=== PATIENT | female | born 1985 | race African-American/Black ===

== ENCOUNTER 2023-12-16 05:40 | Observation (INO) | payer OTHER ==
[2023-12-16] MEDS ORDERED: ONDANSETRON 4 MG/2 ML VIAL ONE (06:25)
[2023-12-16] MEDS ORDERED: FAMOTIDINE 20 MG/50 ML IVPB 20 MG/50 ML MG IVPB ONE (06:25)
[2023-12-16] MEDS: ONDANSETRON 4 MG/2 ML VIAL IVPUSH ONE (07:45)
[2023-12-16] MEDS: SODIUM CHLORIDE 0.9% 500 ML INFUS.BAG IV ONE (07:50)
[2023-12-16] MEDS: FAMOTIDINE 20 MG/50 ML IVPB 20 MG/50 ML MG IVPB ONE (07:51)
[2023-12-16 08:17] LABS: BASO % 0.2 % (0-2.0); HEMATOCRIT 38.8 % (32.4-45.2); HEMOGLOBIN 12.6 GM/dL (10.7-15.3); LYMPH % 7.7 % (8-40); MCH 26.2 pg (25.7-33.7); MCHC 32.5 g/dl (32.0-36.0); MEAN CELL VOLUME 80.5 fl (80-96); MONO % 3.3 % (3.8-10.2); NEUT % 88.8 % (42.8-82.8); PLATELET COUNT 448 10^3/uL (134-434); RBC 4.82 M/mm3 (3.60-5.2); RDW 18.1 % (11.6-15.6); WHITE BLOOD COUNT 18.7 K/mm3 (4.0-10.0)
[2023-12-16 08:37] LABS: POTASSIUM 4.2 mmol/L (3.5-5.1)
[2023-12-16 08:39] LABS: CALCIUM 10.2 mg/dL (8.5-10.1)
[2023-12-16 08:40] LABS: ALBUMIN 3.7 g/dl (3.4-5.0); BLOOD UREA NITROGEN 14.3 mg/dL (7-18)
[2023-12-16 08:43] LABS: CREATININE 0.9 mg/dL (0.55-1.3)
[2023-12-16 08:44] LABS: BILIRUBIN,TOTAL 0.3 mg/dL (0.2-1)
[2023-12-16 08:45] LABS: TOT PROT 8.1 g/dl (6.4-8.2)
[2023-12-16] MEDS ORDERED: ACETAMINOPHEN INJECTION 100 ML IVPB ONE (10:24)
[2023-12-16] MEDS ORDERED: KETOROLAC TROMETHAMINE 15 MG/ML VIAL ONE (10:24)
[2023-12-16] MEDS: KETOROLAC TROMETHAMINE 15 MG/ML VIAL IVPUSH ONE (10:25)
[2023-12-16] MEDS: ACETAMINOPHEN 1000 MG/100 ML BAG IVPB ONE (10:33)
[2023-12-16] MEDS: SODIUM CHLORIDE 1,000 ML IV STA (10:33)
[2023-12-16] MEDS: DICYCLOMINE HCL 20 MG/2 ML AMPUL IM ONE (13:24)
[2023-12-16 13:31] LABS: URINE APPEARANCE CLEAR; URINE BILIRUBIN NEGATIVE (NEGATIVE); URINE COLOR YELLOW; URINE GLUCOSE (UA) NEGATIVE (NEGATIVE); URINE KETONE 1+ (NEGATIVE); URINE LEUK ESTERASE NEGATIVE (NEGATIVE); URINE NITRITE NEGATIVE (NEGATIVE); URINE PROTEIN TRACE (NEGATIVE); URINE UROBILINOGEN 0.2 mg/dL (0.2-1.0)
[2023-12-16] MEDS ORDERED: ALBUTEROL SO4 HFA INHALER IH PRN (14:28)
[2023-12-16] MEDS ORDERED: ALBUTEROL SO4 2.5/IPRATROPIUM 0.5 INH SOL 3 ML VIAL.NEB. NEB PRN (14:28)
[2023-12-16] MEDS: LACTATED RINGERS SOLUTION 1000 ML INFUS.BAG IV ONE (14:38)
[2023-12-16] MEDS ORDERED: amLODIPine BESYLATE 10 MG TABLET (FP) ONE (15:09)
[2023-12-16] MEDS ORDERED: HYDROCHLOROTHIAZIDE 25 MG TABLET (FP) ONE (15:09)
[2023-12-16] MEDS: amLODIPine BESYLATE 10 MG TABLET (FP) PO ONE (15:12)
[2023-12-16] MEDS: HYDROCHLOROTHIAZIDE 25 MG TABLET (FP) PO ONE (15:12)
[2023-12-16] MEDS ORDERED: ACETAMINOPHEN 1000 MG/100 ML BAG IVPB PRN (16:22)
[2023-12-16] MEDS ORDERED: morphine CARPU-JECT 4 MG/1 ML DISP.SYRIN IVPUSH ONE (16:22)
[2023-12-16] MEDS ORDERED: morphine SULFATE 4 MG/ML VIAL ONE (16:28)
[2023-12-16] MEDS ORDERED: MORPHINE SULFATE 2 MG/ML SYRINGE IVPUSH PRN (16:29)
[2023-12-16] MEDS: morphine SULFATE 4 MG/ML VIAL IVPUSH ONE (16:36)
[2023-12-16] MEDS ORDERED: LABETALOL HCL 20 MG/4 ML VIAL IVPUSH ONE (17:19)
[2023-12-16] MEDS ORDERED: LABETALOL HCL 5 MG/1 ML (100MG/20 ML VIAL) ONE (17:19)
[2023-12-16] MEDS: LABETALOL HCL 5 MG/1 ML (100MG/20 ML VIAL) IVPUSH ONE (17:24)
[2023-12-16 18:41] VITALS: BMI 43.2
[2023-12-16] MEDS: DEXTROSE 5%-LACTATED RINGERS 1,000 ML IV SCH (18:58)
[2023-12-16] MEDS: FLUTICASONE/SALMETEROL (WIXELA) 100 MCG/50 MCG DISKUS IH SCH (21:35)
[2023-12-16] MEDS: MONTELUKAST NA 10 MG TABLET PO SCH (21:36)
[2023-12-16] MEDS: ONDANSETRON 4 MG/2 ML VIAL IVPUSH PRN (21:51)
[2023-12-16] MEDS: ENOXAPARIN NA (PORCINE) 40 MG/0.4 ML DISP.SYRIN SQ SCH (21:52)
[2023-12-17] MEDS: HYDROCHLOROTHIAZIDE 25 MG TABLET (FP) PO SCH (09:08)
[2023-12-17] MEDS: amLODIPine BESYLATE 10 MG TABLET (FP) PO SCH (09:08)
[2023-12-17 10:26] LABS: HEMATOCRIT 34.5 % (32.4-45.2); HEMOGLOBIN 11.2 GM/dL (10.7-15.3); MCHC 32.6 g/dl (32.0-36.0); MEAN CELL VOLUME 79.8 fl (80-96); MEAN PLT VOLUME 7.8 fl (7.5-11.1); PLATELET COUNT 373 10^3/uL (134-434); RBC 4.32 M/mm3 (3.60-5.2); RDW 18.1 % (11.6-15.6); WHITE BLOOD COUNT 13.3 K/mm3 (4.0-10.0)
[2023-12-17 10:44] LABS: POTASSIUM 3.2 mmol/L (3.5-5.1)
[2023-12-17 10:53] LABS: BLOOD UREA NITROGEN 7.3 mg/dL (7-18); CALCIUM 8.8 mg/dL (8.5-10.1); MAGNESIUM 1.5 mg/dL (1.8-2.4)
[2023-12-17 10:54] LABS: ALBUMIN 3.1 g/dl (3.4-5.0)
[2023-12-17 10:57] LABS: CREATININE 0.9 mg/dL (0.55-1.3); PHOSPHOROUS 3.1 mg/dL (2.5-4.9)
[2023-12-17 10:58] LABS: BILIRUBIN,TOTAL 0.3 mg/dL (0.2-1); TOT PROT 6.6 g/dl (6.4-8.2)
[2023-12-17] MEDS: MAGNESIUM 2GM/50ML STERILE WATER IVPB IVPB ONE (18:21)
[2023-12-18 10:12] LABS: INR 1.26 (0.83-1.09); PROTHROMBIN TIME (PATIENT) 14.4 SEC (9.7-13.0)
[2023-12-18 10:14] LABS: BASO % 0.4 % (0-2.0); EOS % 0.7 % (0-4.5); HEMATOCRIT 36.2 % (32.4-45.2); HEMOGLOBIN 11.9 GM/dL (10.7-15.3); MCH 26.2 pg (25.7-33.7); MCHC 32.9 g/dl (32.0-36.0); MEAN CELL VOLUME 79.7 fl (80-96); MEAN PLT VOLUME 7.7 fl (7.5-11.1); MONO % 5.1 % (3.8-10.2); NEUT % 79.8 % (42.8-82.8); PLATELET COUNT 406 10^3/uL (134-434); RBC 4.54 M/mm3 (3.60-5.2); RDW 18.2 % (11.6-15.6); WHITE BLOOD COUNT 11.3 K/mm3 (4.0-10.0)
[2023-12-18 10:21] LABS: POTASSIUM 3.1 mmol/L (3.5-5.1)
[2023-12-18 10:24] LABS: CALCIUM 9.1 mg/dL (8.5-10.1)
[2023-12-18 10:25] LABS: ALBUMIN 3.3 g/dl (3.4-5.0)
[2023-12-18 10:27] LABS: BLOOD UREA NITROGEN 5.4 mg/dL (7-18); CREATININE 0.8 mg/dL (0.55-1.3)
[2023-12-18 10:29] LABS: BILIRUBIN,TOTAL 0.3 mg/dL (0.2-1); TOT PROT 6.9 g/dl (6.4-8.2)
[2023-12-18] MEDS: methylPREDNISolone NA SUCC 125 MG/2 ML VIAL IVPUSH ONE (12:18)
[2023-12-18] MEDS: POTASSIUM CHLORIDE ORAL LIQUID 20 MEQ/15 ML PO ONE ×2 (15:40→22:14)
[2023-12-18] MEDS: morphine SULFATE 4 MG/ML VIAL IVPUSH ONE (15:59)
[2023-12-18] MEDS: BUDESONIDE/FORMETEROL FUMARATE 160/4.5 mcg INHALER IH SCH (22:33)
[2023-12-19 09:57] LABS: HEMOGLOBIN 11.8 GM/dL (10.7-15.3); MCH 26.2 pg (25.7-33.7); MCHC 32.6 g/dl (32.0-36.0); MEAN CELL VOLUME 80.2 fl (80-96); MEAN PLT VOLUME 7.9 fl (7.5-11.1); PLATELET COUNT 407 10^3/uL (134-434); RBC 4.49 M/mm3 (3.60-5.2); RDW 17.8 % (11.6-15.6); WHITE BLOOD COUNT 22.1 K/mm3 (4.0-10.0)
[2023-12-19 10:18] LABS: POTASSIUM 3.7 mmol/L (3.5-5.1)
[2023-12-19 10:20] LABS: ALBUMIN 3.5 g/dl (3.4-5.0); CALCIUM 9.5 mg/dL (8.5-10.1)
[2023-12-19 10:22] LABS: MAGNESIUM 1.9 mg/dL (1.8-2.4)
[2023-12-19 10:24] LABS: CREATININE 0.8 mg/dL (0.55-1.3); PHOSPHOROUS 2.8 mg/dL (2.5-4.9)
[2023-12-19 10:25] LABS: BILIRUBIN,TOTAL 0.3 mg/dL (0.2-1); TOT PROT 7.4 g/dl (6.4-8.2)
[2023-12-19] MEDS: NAPROXEN 250 MG TABLET PO SCH (15:55)
[2023-12-19] MEDS: CELECOXIB 200 MG CAPSULE PO SCH (17:28)
[2023-12-19] MEDS: IRON SUCROSE INJECTION 200 MG in SODIUM CHLORIDE 100 ML IVPB ONE (17:28)
[2023-12-19] MEDS: PANTOPRAZOLE 40 MG TABLET PO SCH (22:46)
[2023-12-20] MEDS: oxyCODONE HCL 5 MG TABLET PO PRN (01:11)
[2023-12-20 03:01] VITALS: RESP 18; TEMP 99
[2023-12-20 09:53] VITALS: BP 127/82; PULSE 98
== END 2023-12-20 11:15 | disposition home or self-care (01) ==
LOC: JER 05:40 → JERBED 14:09 → J6S 18:10
PROVIDERS: ADMIT Internal Medicine; ATTEND Internal Medicine
PROC: 0DB78ZX Excision of Stomach, Pylorus, Via Natural or Artificial Opening Endoscopic, Diagnostic (ICD-10-PCS; principal; 2023-12-16)
PROC: 3E033NZ Introduction of Analgesics, Hypnotics, Sedatives into Peripheral Vein, Percutaneous Approach (ICD-10-PCS; 2023-12-16)
PROC: 3E033GC Introduction of Other Therapeutic Substance into Peripheral Vein, Percutaneous Approach (ICD-10-PCS; 2023-12-16)
PROC: 3E0337Z Introduction of Electrolytic and Water Balance Substance into Peripheral Vein, Percutaneous Approach (ICD-10-PCS; 2023-12-16)
PROC: 3E023GC Introduction of Other Therapeutic Substance into Muscle, Percutaneous Approach (ICD-10-PCS; 2023-12-16)
PROC: 3E0333Z Introduction of Anti-inflammatory into Peripheral Vein, Percutaneous Approach (ICD-10-PCS; 2023-12-16)
DX: K29.50 Unspecified chronic gastritis without bleeding (principal); K44.9 Diaphragmatic hernia without obstruction or gangrene; N80.9 Endometriosis, unspecified; I10 Essential (primary) hypertension; J45.909 Unspecified asthma, uncomplicated; K80.20 Calculus of gallbladder without cholecystitis without obstruction; K64.9 Unspecified hemorrhoids; E66.01 Morbid (severe) obesity due to excess calories; G47.33 Obstructive sleep apnea (adult) (pediatric); D25.9 Leiomyoma of uterus, unspecified; N81.4 Uterovaginal prolapse, unspecified; Z88.0 Allergy status to penicillin
CPT/HCPCS: 36415; 74177-TC; 76705-TC; 76830-TC; 80048; 80053; 81003; 83540; 83550; 83690; 83735; 84100; 84703; 85025; 85027; 85610; 86140; 86850; 86900; 86901; 87045; 87046; 87086; 87205; 87209; 87324; 87449; 87493; 88305-TC; 88342-TC; 93005; 93010; 96361; 96365; 96366; 96367; 96372; 96375; 96376; 99285-25; G0378; J0131; J1756; Q9967

== ENCOUNTER 2024-01-13 09:30 | Observation (INO) | payer OTHER ==
[2024-01-13] MEDS: SODIUM CHLORIDE 0.9% 500 ML INFUS.BAG IV ONE (10:45)
[2024-01-13] MEDS ORDERED: PANTOPRAZOLE 40 MG TABLET PO ONE (10:48)
[2024-01-13] MEDS ORDERED: ALBUTEROL SO4 2.5/IPRATROPIUM 0.5 INH SOL 3 ML VIAL.NEB. NEB ONE (10:48)
[2024-01-13] MEDS ORDERED: ONDANSETRON 4 MG/2 ML VIAL ONE (10:49)
[2024-01-13] MEDS ORDERED: SUCRALFATE 1 GM TABLET (FP) ONE (10:49)
[2024-01-13] MEDS ORDERED: methylPREDNISolone NA SUCC 125 MG/2 ML VIAL ONE (10:49)
[2024-01-13] MEDS ORDERED: MAG HYDROX/AL HYDROX/SIMETH 30 ML UNIT-DOSE CUP ONE (10:49)
[2024-01-13] MEDS ORDERED: ACETAMINOPHEN INJECTION 100 ML ONE (10:49)
[2024-01-13 10:50] LABS: BASO % 0.4 % (0-2.0); EOS % 0.7 % (0-4.5); HEMATOCRIT 44.5 % (32.4-45.2); HEMOGLOBIN 14.3 GM/dL (10.7-15.3); LYMPH % 13.1 % (8-40); MCH 26.1 pg (25.7-33.7); MCHC 32.1 g/dl (32.0-36.0); MEAN CELL VOLUME 81.3 fl (80-96); MEAN PLT VOLUME 7.9 fl (7.5-11.1); MONO % 6.4 % (3.8-10.2); NEUT % 79.4 % (42.8-82.8); PLATELET COUNT 454 10^3/uL (134-434); RBC 5.48 M/mm3 (3.60-5.2); RDW 17.8 % (11.6-15.6)
[2024-01-13 11:01] LABS: INR 1.22 (0.83-1.09); PROTHROMBIN TIME (PATIENT) 13.9 SEC (9.7-13.0)
[2024-01-13] MEDS: MAG HYDROX/AL HYDROX/SIMETH -MYLANTA- ORAL SUSPENSION PO ONE (11:04)
[2024-01-13] MEDS: ACETAMINOPHEN 1000 MG/100 ML BAG IVPB ONE ×2 (11:05→19:52)
[2024-01-13] MEDS: ALBUTEROL SO4 2.5/IPRATROPIUM 0.5 INH SOL 3 ML VIAL.NEB. NEB ONE (11:06)
[2024-01-13] MEDS: methylPREDNISolone NA SUCC 125 MG/2 ML VIAL IVPUSH ONE (11:06)
[2024-01-13] MEDS: ONDANSETRON 4 MG/2 ML VIAL IVPUSH ONE ×2 (11:06→20:02)
[2024-01-13] MEDS: SUCRALFATE 1 GM TABLET (FP) PO ONE (11:06)
[2024-01-13] MEDS: PANTOPRAZOLE SOD 40 MG SUSPENSION PACKET PO ONE (11:06)
[2024-01-13 11:15] LABS: POTASSIUM 4.5 mmol/L (3.5-5.1)
[2024-01-13 11:17] LABS: ALBUMIN 3.8 g/dl (3.4-5.0); BLOOD UREA NITROGEN 6.8 mg/dL (7-18); CALCIUM 9.7 mg/dL (8.5-10.1)
[2024-01-13 11:20] LABS: CREATININE 0.9 mg/dL (0.55-1.3)
[2024-01-13 11:22] LABS: BILIRUBIN,TOTAL 0.4 mg/dL (0.2-1); TOT PROT 8.2 g/dl (6.4-8.2)
[2024-01-13 11:26] LABS: N-TERMINAL BNP 36.4 pg/ml (5-125)
[2024-01-13] MEDS: LACTATED RINGERS SOLUTION 1000 ML INFUS.BAG IV ONE (13:55)
[2024-01-13] MEDS ORDERED: morphine SULFATE 4 MG/ML VIAL ONE (15:30)
[2024-01-13] MEDS: morphine SULFATE 4 MG/ML VIAL IVPUSH ONE (15:40)
[2024-01-13] MEDS ORDERED: ALBUTEROL SO4 HFA INHALER IH PRN (15:54)
[2024-01-13 18:32] VITALS: BMI 41.8
[2024-01-13] MEDS: LACTATED RINGERS SOLUTION 1,000 ML IV SCH (19:52)
[2024-01-13] MEDS: VANCOMYCIN ORAL SOLUTION 125 MG/2.5 ML PO SCH (20:01)
[2024-01-13] MEDS: MONTELUKAST NA 10 MG TABLET PO SCH (21:31)
[2024-01-13] MEDS: BUDESONIDE/FORMETEROL FUMARATE 160/4.5 mcg INHALER IH SCH (21:31)
[2024-01-13] MEDS: ENOXAPARIN NA (PORCINE) 40 MG/0.4 ML DISP.SYRIN SQ SCH (21:31)
[2024-01-14] MEDS: ACETAMINOPHEN 1000 MG/100 ML BAG IVPB PRN (01:52)
[2024-01-14 07:56] LABS: HEMATOCRIT 35.8 % (32.4-45.2); HEMOGLOBIN 11.6 GM/dL (10.7-15.3); MCH 26.2 pg (25.7-33.7); MCHC 32.5 g/dl (32.0-36.0); MEAN CELL VOLUME 80.5 fl (80-96); MEAN PLT VOLUME 7.9 fl (7.5-11.1); PLATELET COUNT 414 10^3/uL (134-434); RBC 4.45 M/mm3 (3.60-5.2); WHITE BLOOD COUNT 14.2 K/mm3 (4.0-10.0)
[2024-01-14 08:21] LABS: POTASSIUM 3.8 mmol/L (3.5-5.1)
[2024-01-14 08:24] LABS: CALCIUM 9.8 mg/dL (8.5-10.1)
[2024-01-14 08:25] LABS: ALBUMIN 3.4 g/dl (3.4-5.0); MAGNESIUM 1.6 mg/dL (1.8-2.4)
[2024-01-14 08:27] LABS: CREATININE 0.7 mg/dL (0.55-1.3); PHOSPHOROUS 3.4 mg/dL (2.5-4.9)
[2024-01-14 08:29] LABS: BILIRUBIN,TOTAL 0.5 mg/dL (0.2-1); TOT PROT 6.8 g/dl (6.4-8.2)
[2024-01-14] MEDS: HYDROCHLOROTHIAZIDE 25 MG TABLET (FP) PO SCH (09:20)
[2024-01-14] MEDS: amLODIPine BESYLATE 10 MG TABLET (FP) PO SCH (09:20)
[2024-01-14] MEDS: MAGNESIUM 2GM/50ML STERILE WATER IVPB IVPB ONE (09:21)
[2024-01-15] MEDS: ACETAMINOPHEN 1000 MG/100 ML BAG IVPB ONE (06:51)
[2024-01-15 07:52] VITALS: RESP 16
[2024-01-15 09:46] LABS: BASO % 0.2 % (0-2.0); EOS % 0.3 % (0-4.5); HEMATOCRIT 38.9 % (32.4-45.2); HEMOGLOBIN 12.6 GM/dL (10.7-15.3); LYMPH % 15.6 % (8-40); MCH 25.8 pg (25.7-33.7); MCHC 32.2 g/dl (32.0-36.0); MEAN PLT VOLUME 7.9 fl (7.5-11.1); MONO % 6.9 % (3.8-10.2); PLATELET COUNT 434 10^3/uL (134-434); RBC 4.86 M/mm3 (3.60-5.2); RDW 17.7 % (11.6-15.6); WHITE BLOOD COUNT 11.6 K/mm3 (4.0-10.0)
[2024-01-15 10:19] VITALS: BP 124/80; PULSE 80; TEMP 98.9
[2024-01-15 10:26] LABS: POTASSIUM 3.3 mmol/L (3.5-5.1)
[2024-01-15 10:46] LABS: ALBUMIN 3.7 g/dl (3.4-5.0); BLOOD UREA NITROGEN 6.4 mg/dL (7-18); CALCIUM 9.6 mg/dL (8.5-10.1)
[2024-01-15 10:48] LABS: BILIRUBIN,TOTAL 0.3 mg/dL (0.2-1); TOT PROT 7.4 g/dl (6.4-8.2)
[2024-01-15 10:49] LABS: CREATININE 0.8 mg/dL (0.55-1.3)
[2024-01-15] MEDS: POTASSIUM CHLORIDE ORAL LIQUID 20 MEQ/15 ML PO ONE (11:11)
[2024-01-15] MEDS: POTASSIUM CHLORIDE TABS 20 MEQ TABLET.ER (FP) PO ONE (13:07)
== END 2024-01-15 11:23 | disposition home or self-care (01) ==
LOC: JER 09:30 → INTOOBSV 15:31 → JERBED 15:31 → J8W 17:49
PROVIDERS: ADMIT Internal Medicine; ATTEND Nurse Practitioner Family
PROC: 3E033NZ Introduction of Analgesics, Hypnotics, Sedatives into Peripheral Vein, Percutaneous Approach (ICD-10-PCS; principal; 2024-01-13)
PROC: 3E0F7GC Introduction of Other Therapeutic Substance into Respiratory Tract, Via Natural or Artificial Opening (ICD-10-PCS; 2024-01-13)
PROC: 3E023GC Introduction of Other Therapeutic Substance into Muscle, Percutaneous Approach (ICD-10-PCS; 2024-01-13)
PROC: 3E033GC Introduction of Other Therapeutic Substance into Peripheral Vein, Percutaneous Approach (ICD-10-PCS; 2024-01-13)
PROC: 3E0337Z Introduction of Electrolytic and Water Balance Substance into Peripheral Vein, Percutaneous Approach (ICD-10-PCS; 2024-01-13)
DX: A04.72 Enterocolitis due to Clostridium difficile, not specified as recurrent (principal); I10 Essential (primary) hypertension; J44.9 Chronic obstructive pulmonary disease, unspecified; N80.9 Endometriosis, unspecified; G62.9 Polyneuropathy, unspecified; Z90.49 Acquired absence of other specified parts of digestive tract; K80.20 Calculus of gallbladder without cholecystitis without obstruction; R60.0 Localized edema; Z88.0 Allergy status to penicillin
CPT/HCPCS: 36415; 71045-TC-FY; 71275-TC; 74177-TC; 80053; 83690; 83735; 83880; 84100; 84484; 85025; 85027; 85610; 85730; 86140; 87045; 87046; 87186; 87205; 87209; 87493; 93005; 93010; 93970-TC; 94640; 96372; 96374; 96375; 96376; 99285-25; G0378; J0131; Q9967

== ENCOUNTER 2024-03-15 18:59 | Emergency (ER) | payer OTHER ==
[2024-03-15 19:24] VITALS: BP 142/95; PULSE 113; RESP 16; TEMP 98.5; BMI 44.6
[2024-03-15 20:31] LABS: BASO % 0.3 % (0-2.0); EOS % 4.7 % (0-4.5); HEMATOCRIT 34.5 % (32.4-45.2); HEMOGLOBIN 11.2 GM/dL (10.7-15.3); LYMPH % 17.5 % (8-40); MCH 25.7 pg (25.7-33.7); MCHC 32.3 g/dl (32.0-36.0); MEAN CELL VOLUME 79.5 fl (80-96); MEAN PLT VOLUME 7.6 fl (7.5-11.1); MONO % 8.3 % (3.8-10.2); NEUT % 69.2 % (42.8-82.8); PLATELET COUNT 371 10^3/uL (134-434); RBC 4.34 M/mm3 (3.60-5.2); RDW 16.8 % (11.6-15.6); WHITE BLOOD COUNT 8.6 K/mm3 (4.0-10.0)
[2024-03-15 20:50] LABS: ALBUMIN 2.9 g/dl (3.4-5.0); BLOOD UREA NITROGEN 20.2 mg/dL (7-18); CALCIUM 8.6 mg/dL (8.5-10.1)
[2024-03-15 20:54] LABS: CREATININE 0.8 mg/dL (0.55-1.3)
[2024-03-15 20:55] LABS: BILIRUBIN,TOTAL 0.2 mg/dL (0.2-1); TOT PROT 6.3 g/dl (6.4-8.2)
[2024-03-15 20:57] LABS: N-TERMINAL BNP 129.7 pg/ml (5-125)
[2024-03-15 21:51] LABS: HIV INTERPRETATION NEGATIVE (NEGATIVE)
== END 2024-03-15 21:54 | disposition home or self-care (01) ==
LOC: JER 18:59
DX: M79.89 Other specified soft tissue disorders (principal)
CPT/HCPCS: 36415; 80053; 83880; 84703; 85025; 86803; 87389; 93005; 93010; 93971-TC; 99285-25

== ENCOUNTER 2024-03-18 17:28 | Emergency (ER) | payer OTHER ==
[2024-03-18 17:40] VITALS: BP 138/93; PULSE 98; RESP 19; TEMP 98.9; BMI 44.6
[2024-03-18] MEDS ORDERED: ACETAMINOPHEN 325 MG TABLET (FP) ONE (18:22)
[2024-03-18] MEDS ORDERED: KETOROLAC TROMETHAMINE 30 MG/1 ML VIAL ONE (18:23)
[2024-03-18] MEDS: KETOROLAC TROMETHAMINE 30 MG/1 ML VIAL IM ONE (18:51)
[2024-03-18] MEDS: ACETAMINOPHEN 500 MG TABLET (FP) PO ONE (18:51)
[2024-03-18] MEDS ORDERED: FUROSEMIDE 40 MG/4 ML INJECTABLE VIAL ONE (19:56)
[2024-03-18 19:59] LABS: BASO % 0.5 % (0-2.0); EOS % 3.6 % (0-4.5); HEMATOCRIT 32.4 % (32.4-45.2); HEMOGLOBIN 10.5 GM/dL (10.7-15.3); LYMPH % 13.2 % (8-40); MCH 25.7 pg (25.7-33.7); MCHC 32.4 g/dl (32.0-36.0); MEAN CELL VOLUME 79.2 fl (80-96); MEAN PLT VOLUME 7.7 fl (7.5-11.1); MONO % 7.1 % (3.8-10.2); NEUT % 75.6 % (42.8-82.8); PLATELET COUNT 366 10^3/uL (134-434); RBC 4.09 M/mm3 (3.60-5.2); WHITE BLOOD COUNT 9.5 K/mm3 (4.0-10.0)
[2024-03-18] MEDS: FUROSEMIDE 100 MG/10 ML INJECTABLE VIAL IVPUSH ONE (20:05)
[2024-03-18 20:25] LABS: POTASSIUM 4.1 mmol/L (3.5-5.1)
[2024-03-18 20:27] LABS: ALBUMIN 2.8 g/dl (3.4-5.0); CALCIUM 8.5 mg/dL (8.5-10.1)
[2024-03-18 20:28] LABS: BLOOD UREA NITROGEN 14.8 mg/dL (7-18)
[2024-03-18 20:31] LABS: CREATININE 0.9 mg/dL (0.55-1.3)
[2024-03-18 20:32] LABS: BILIRUBIN,TOTAL 0.2 mg/dL (0.2-1); TOT PROT 5.9 g/dl (6.4-8.2)
== END 2024-03-18 21:02 | disposition home or self-care (01) ==
LOC: JER 17:28
PROC: 3E033GC Introduction of Other Therapeutic Substance into Peripheral Vein, Percutaneous Approach (ICD-10-PCS; principal; 2024-03-18)
PROC: 3E0133Z Introduction of Anti-inflammatory into Subcutaneous Tissue, Percutaneous Approach (ICD-10-PCS; 2024-03-18)
DX: M79.89 Other specified soft tissue disorders (principal)
CPT/HCPCS: 36415; 80053; 85025; 99284-25